=== PATIENT | female | born 1970 | race Caucasian/White ===

== ENCOUNTER → 2016-04-14 | Day surgery (SDC) | payer OTHER ==
[~2016-04-14] MED LIST: BUPIVACAINE/EPINEPHRINE 0.5% PF 30 ML VIAL ONE; CLINDAMYCIN PHOS 900 MG/6 ML VIAL ONE; HEPARIN SODIUM - IV 10,000 UNITS/10 ML VIAL ONE; ISOSULFAN BLUE 50 MG/5 ML VIAL SQ ONE; KETOROLAC TROMETHAMINE 30 MG/ML (IVP) VIAL ONE; LACTATED RINGER'S 1000 ML INJ 1,000 ML ONE; MEPERIDINE HCL 50 MG/ML VIAL ONE; MIDAZOLAM HCL 2 MG/2 ML VIAL ONE; ONDANSETRON HCL 4 MG/2 ML VIAL IV PUSH ONE; PROPOFOL 200 MG/20 ML AMP IV ONE; SODIUM CHLORIDE 0.9% 20 ML VIAL ONE; SODIUM CHLORIDE 0.9% INJ 10 ML ONE; SODIUM CHLORIDE 0.9% SOLN 100 ML (PAB) BAG IV ONE
--- NOTE | 2016-04-14 11:13 | TN ---
cc: ROSAURA DE LEON DATE OF SURGERY: 04/14/2016 PREOPERATIVE DIAGNOSIS Clinical stage II right breast cancer. POSTOPERATIVE DIAGNOSIS Clinical stage II right breast cancer. PROCEDURE PERFORMED 1. Right axillary sentinel lymph node biopsy. 2. Left subclavian PowerPort placement. SURGEON Rosaura Boone ANESTHESIA General via LMA device. INDICATION The patient is a 46-year-old female with a large palpable mass which is greater than 2 cm in size in the upper outer aspect of the right breast. MRI imaging demonstrated borderline adenopathy in the right axilla and ultrasound-guided core biopsy of the right axillary lymph nodes was nondiagnostic. The patient has a tumor which is HER-2/celina overexpressing and she will require neoadjuvant chemotherapy. Axillary staging has also been requested and she presents for the procedure. FINDINGS At the time of surgery normal left subclavian anatomy was identified. Two sentinel lymph nodes were removed. Cascade lymph node #1 had a count of 100 and was not blue, and sentinel lymph node #2 had a count of 85 and was not blue. Touch prep analysis was not performed. PROCEDURE After informed consent was obtained and site verification was performed, the patient was brought to the radiology suite where she underwent peritumoral radionuclide injection. She was then brought to the major operating room where she underwent general anesthesia via an LMA device. She was given a single dose of IV clindamycin due to penicillin allergy. Because of subpectoral implants, she was not placed in Trendelenburg. Two cc of half-strength Lymphazurin were injected in the subareolar right breast and a five-minute massage was performed. Both breasts were then prepped and draped in sterile fashion to include the right arm. The left subclavian area was anesthetized with 0.5% Marcaine plain and the left subclavian vein was identified via percutaneous cannulation. A J-wire easily advanced through the needle via the Seldinger technique an its position was confirmed with fluoroscopy in the central circulation. The needle was then removed and both sharp and electrocautery dissection were performed circumferentially around the wire to create a subcutaneous pocket for the reservoir. The catheter was measured out at 30 cm and cut off. A peel-away sheath and introducer were then advanced over the wire without difficulty and the wire and introducer were removed. The catheter advanced easily through the peel-away sheath which was also removed. Fluoroscopy demonstrated good position of the catheter tip at the atriocaval junction at 19 cm and it was cut off at that point and secured to the reservoir which was noted to flush and aspirate easily. The reservoir was placed in the subcutaneous pocket and secured to the chest wall with a single 2-0 Prolene suture. Good hemostasis was noted and the wound was closed using interrupted 3-0 Vicryl subcutaneous sutures and 4-0 Monocryl subcuticular suture. Steri-Strips and a sterile dressing were applied. Attention was then turned to the right axilla where an incision was anesthetized at the inferior aspect of the right axillary hairline using 0.5% Marcaine plain. Sharp and electrocautery dissection was used to divide the clavipectoral fascia and enter the level I axilla. Multiple less than 1 cm benign-appearing lymph nodes were identified and two central level I nodes were circumferentially dissected free from surrounding structures using the Harmonic scalpel. Cascade node #1 had a count of 100 and it was not blue, and sentinel node #2 had a count of 85 and it was not blue. Some surrounding lymph nodes were also removed using Harmonic scalpel dissection but they had no count and were sent as a permanent axillary specimen. The axillary vein, thoracodorsal, long thoracic, and intercostal brachial vessels were all identified and remained intact throughout the dissection. Good hemostasis was noted and the wound was closed using interrupted 3-0 Vicryl subcutaneous sutures and a 4-0 Monocryl subcuticular suture. Steri-Strips and a sterile dressing were applied. MD ZACKARY Chambers/RANJAN /10:54 AM /11:06 AM
--- NOTE | 2016-08-22 15:33 | MH ---
cc: DEEPTI DICKENS DATE OF ADMISSION: 04/14/2016 PRINCIPAL DIAGNOSIS Right breast cancer ATTENDING PHYSICIAN Lea Dickens MD. HISTORY OF PRESENT ILLNESS The patient is a 46-year-old female initially seen in March for a [id number] positive right breast cancer. The ultrasound measurement on the tumor was 2.1 cm, although on clinical exam, it was 1.5 cm. Adenopathy was also noted and an image guided lymph node biopsy was discordant. Dr. Coombs requested a sentinel lymph node biopsy which was performed and was negative for metastatic disease on April 14. She subsequently completed neoadjuvant chemotherapy which included Taxol and Herceptin. She is also status post previous subpectoral saline implant placement and she now presents requesting bilateral mastectomy with immediate reconstruction. She has no other medical problems. PAST SURGERIES 1. Included port placement 2. Right axillary sentinel lymph node biopsy. 3. Tonsillectomy. MEDICATIONS: She takes no medications. ALLERGIES She is allergic to penicillin. TESTING: Hereditary breast cancer testing was performed and is negative for a mutation. REVIEW OF SYSTEMS: 12-point review of systems was otherwise noncontributory. PHYSICAL EXAMINATION IN GENERAL: She is alert and oriented x3 and in no acute distress. VITAL SIGNS: She was 5'10" and weighs 190 pounds with a BMI of 27.3. Blood pressure was 144/93, temperature 98, respirations 18, heart rate 82. HEAD, EYES, EARS, NOSE, AND THROAT: Exam was significant for alopecia. NECK: The neck was supple with no adenopathy or thyromegaly. CHEST: The Chest was clear throughout. CARDIAC: The cardiac examination revealed a normal S1, S2 with no murmurs, rubs or gallops. BREASTS: The examination revealed fibrocystic changes and intact implants with no palpable masses. Initially she had a palpable mass in the 10 o'clock location of the right breast but this has resolved with neoadjuvant therapy. There is a healed periareolar and right axillary scar. ABDOMEN: The abdomen was soft and nontender throughout with no hepatosplenomegaly or masses. The remainder of her exam was unremarkable. IMPRESSION Ms. Hardwick had an excellent clinical response to therapy and now presents for bilateral mastectomy and immediate reconstruction. She will not require further normal evaluation since of pretreatment sentinel lymph node biopsy was negative. If she desires the nipple sparing procedure and think it is reasonable to proceed. MD Silviano Chambers /1:50 PM /3:29 PM
== END | disposition home or self-care (01) ==
LOC: ESDC 06:16
PROVIDERS: ATTEND Surgery
DX: C50.411 Malignant neoplasm of upper-outer quadrant of right female breast (principal)
CPT/HCPCS: 00532; 01610; 36561; 38525; 38792; 77001; 88307; C1788; J1644; J1885; J2175; J2250; J2405; J3010; J7120; Q9968; 88305

== ENCOUNTER → 2016-06-02 | Day surgery (SDC) | payer OTHER ==
--- NOTE | 2016-05-31 12:55 | MH ---
cc: ROSAURA DICKENS DATE OF ADMISSION: 06/02/2016 PRINCIPAL DIAGNOSIS Right breast cancer with nonfunctioning left subclavian port. ATTENDING PHYSICIAN Rosaura Dickens MD HISTORY OF PRESENT ILLNESS The patient is a 46-year-old female status post left subclavian Fqczrs-N-Jnar placement and right axillary sentinel lymph node biopsy who has HER2 positive clinical stage II right breast cancer. She is currently receiving neoadjuvant chemotherapy and will subsequently undergo bilateral mastectomy with immediate reconstruction. Her left subclavian Revuzd-N-Pule stopped functioning late last week and she now presents for removal and replacement. PAST MEDICAL HISTORY She has significant for the newly diagnosed breast cancer. ALLERGIES PENICILLIN CURRENT MEDICATIONS Her chemotherapy regimen which involves Adriamycin, Cytoxan and Herceptin. PHYSICAL EXAMINATION: IN GENERAL: On physical exam she is alert and oriented x3. HEAD, EYES, EARS, NOSE, AND THROAT: Exam was unremarkable. VITAL SIGNS: She is 5'10" and weighs 190 pounds with a BMI of 27.3. Blood pressure was 147/91, temperature 97, heart rate 86, respirations 20. CHEST: The chest exam was unremarkable with a well-healed port scar and the left subclavian area and chest was clear throughout. CARDIAC: Exam was unremarkable. BREASTS: Exam revealed fibrocystic changes and bilateral implants with a 1.5 cm superior lateral quadrant mass in the outer right breast. Her right breast mass was located 10 o'clock 5 cm from the nipple. The remainder of her exam was unremarkable. IMPRESSION Ms. Hardwick will require replacement of her nonfunctioning Azfmui-O-Sbom and she understands the risks and benefits of the procedure. This is currently scheduled for June 02. MD ZACKARY Chambers/yoav /5:10 PM /12:54 PM
[~2016-06-02] MED LIST changes: +BUPIVACAINE/EPINEPHRINE 0.5% PF 10 ML VIAL ONE; -BUPIVACAINE/EPINEPHRINE 0.5% PF 30 ML VIAL ONE; -ISOSULFAN BLUE 50 MG/5 ML VIAL SQ ONE; -MEPERIDINE HCL 50 MG/ML VIAL ONE; -ONDANSETRON HCL 4 MG/2 ML VIAL IV PUSH ONE; +ONDANSETRON HCL 4 MG/2 ML VIAL ONE; +PROPOFOL 100 MG/10 ML INJ IV ONE; -PROPOFOL 200 MG/20 ML AMP IV ONE; +PROPOFOL 500 MG/50 ML BTL IV ONE; -SODIUM CHLORIDE 0.9% INJ 10 ML ONE; -SODIUM CHLORIDE 0.9% SOLN 100 ML (PAB) BAG IV ONE; +SODIUM CHLORIDE 0.9% SOLN 100 ML BAG IV ONE; +oxyCODONE/ACETAMINOPHEN 5 MG/325 MG TAB ONE
--- NOTE | 2016-06-02 10:37 | TN ---
cc: ROSUARA DICKENS M.D. DATE OF SURGERY: 06/02/2016 PREOPERATIVE DIAGNOSIS Right breast cancer with nonfunctioning left subclavian Ohezeb-L-Diwn. POSTOPERATIVE DIAGNOSIS Right breast cancer with nonfunctioning left subclavian Ypnlmy-G-Xnms. PROCEDURE PERFORMED Repositioning of left subclavian Fjkwzh-G-Nkjr. SURGEON Rosaura Dickens ANESTHESIA TIVA. INDICATION The patient is a 46-year-old with clinical stage II right breast cancer which is HER-2 positive. She is receiving neoadjuvant chemotherapy and her Cfsdrm-O-Bnoh was unable to be accessed last Sunday. She now presents for evaluation and possible replacement of her port to facilitate chemotherapy. FINDINGS At the time of the procedure the PowerPort was patent and could be flushed and aspirated easily. It had rotated on itself making access impossible. PROCEDURE After informed consent was obtained and site verification was performed, the patient was brought to the operating room where she was given IV sedation. She was given a single dose of clindamycin due to penicillin allergy and sequential compression hose were placed. The left and right chest and neck were prepped and draped in sterile fashion. The previous left subclavian port incision was anesthetized with 0.5% Marcaine plain and incised sharply. The port was immediately identified and had rotated on itself and the securing stitch had broken. The reservoir was accessed using heparinized saline and was noted to flush and aspirate easily. It was replaced into the subcutaneous pocket and secured to the soft tissue with two 2-0 Prolene sutures, one on each side of the IV portion. Good hemostasis was noted and the wound was closed using interrupted 3-0 Vicryl and a 4-0 Monocryl subcuticular suture. Steri-Strips and a sterile dressing were applied. She also had a small superficial hemangioma adjacent to the port site and she requested removal. This was snipped at its base using a knife and cauterized. The patient tolerated the procedure well and was brought to the recovery room in good condition. All sponge and needle counts were correct at the conclusion of the case. MD ZACKARY Chambers/RANJAN /10:10 AM 10:30 AM
== END | disposition home or self-care (01) ==
LOC: ESDC 07:22
PROVIDERS: ATTEND Surgery
DX: Z45.2 Encounter for adjustment and management of vascular access device (principal); C50.911 Malignant neoplasm of unspecified site of right female breast
CPT/HCPCS: 00400; 00532; 36561; 36590; C1788; J1644; J1885; J2250; J2405; J3010; J7120

== ENCOUNTER → 2016-08-25 | Day surgery (SDC) | payer OTHER ==
[~2016-08-25] MED LIST changes: +ACETAMINOPHEN 1000 MG/100 ML VIAL IV ONE; +ACETAMINOPHEN/HYDROcodone 325 MG/5 MG TAB ONE; +BACITRACIN IM FOR SOLN 50,000 UNIT VIAL ONE; +BUPIVACAINE LIPOSOME PF 1.3% 20 ML VIAL ONE; -BUPIVACAINE/EPINEPHRINE 0.5% PF 10 ML VIAL ONE; +BUPIVACAINE/EPINEPHRINE 0.5% PF 30 ML VIAL ONE; -CLINDAMYCIN PHOS 900 MG/6 ML VIAL ONE; +GENTAMICIN SULFATE 80 MG/2 ML VIAL ONE; -HEPARIN SODIUM - IV 10,000 UNITS/10 ML VIAL ONE; +KETOROLAC TROMETHAMINE 30 MG/ML (IVP) VIAL IV PUSH ONE; -KETOROLAC TROMETHAMINE 30 MG/ML (IVP) VIAL ONE; +MEPERIDINE HCL 25 MG/ML VIAL ONE; +ONDANSETRON HCL 4 MG/2 ML VIAL IV PUSH ONE; -ONDANSETRON HCL 4 MG/2 ML VIAL ONE; +PROMETHAZINE INJ 25 MG/ML VIAL ONE; -PROPOFOL 100 MG/10 ML INJ IV ONE; +PROPOFOL 200 MG/20 ML AMP IV ONE; -PROPOFOL 500 MG/50 ML BTL IV ONE; -SODIUM CHLORIDE 0.9% 20 ML VIAL ONE; +SODIUM CHLORIDE 0.9% INJ 10 ML ONE; -SODIUM CHLORIDE 0.9% SOLN 100 ML BAG IV ONE; +VANCOMYCIN HCL 1000 MG VIAL ONE; -oxyCODONE/ACETAMINOPHEN 5 MG/325 MG TAB ONE
--- NOTE | 2016-08-25 14:38 | TN ---
cc: ROSAURA DICKENS DATE OF SURGERY: 08/25/2016 PREOPERATIVE DIAGNOSIS Right breast cancer, status post neoadjuvant chemotherapy. POSTOPERATIVE DIAGNOSIS Right breast cancer, status post neoadjuvant chemotherapy. PROCEDURE PERFORMED Bilateral nipple-sparing mastectomy, bilateral implant removal and bilateral tissue transfer station attendant placement with removal of accessory left nipple. SURGEONS Rosaura Dickens and Juventino Taylor ANESTHESIA General via LMA device. INDICATION The patient is a 46-year-old female who presented with right breast cancer which was HER-2/celina positive. She completed neoadjuvant chemotherapy and now presents for definitive surgical therapy. She has opted for a bilateral nipple-sparing procedure and she already has implants in place. FINDINGS At the time of surgery no residual carcinoma was identified in the upper outer right breast. Intact implants were encountered bilaterally in the subpectoral position. PROCEDURE After informed consent was obtained and site verification was performed, the patient was brought to the major operating room where she underwent general anesthesia via an LMA device. Both breasts were prepped and draped in sterile fashion and she was given a single dose of IV Ancef and sequential compression hose were placed. 200 cc of tumescent solution were infiltrated in the plane between the subcutaneous fat and anterior breast fascia bilaterally. An inframammary crease incision was created on the right side and sharp dissection was performed to develop the plane between the subcutaneous fat and anterior breast fascia medially and laterally to the level of the nipple. The posterior plane was then developed using electrocautery dissection and it should be noted that the anterior implant capsule and pectoralis muscle were densely adherent. The muscle and capsule were dissected free from the overlying breast tissue medially and laterally up to the level of the clavicle. Sharp dissection was then performed in the area of the nipple and a piece of the undersurface of the nipple was removed and sent for frozen section after marking the new nipple margin. Further sharp dissection was performed in the superior portion of the breast up to the level of the clavicle in the anterior plane between the breast fascia and the subcutaneous fat. The breast was then amputated in the axilla and the specimen was oriented with one short suture superiorly, two sutures anteriorly, and one long suture laterally. Hemostasis was easily obtained with electrocautery. The reconstruction was then performed by Dr. Taylor and will be recorded on a separate dictation. MD KATY Chambers /2:29 PM /2:38 PM
--- NOTE | 2016-08-25 15:38 | TN ---
cc: JUVENTINO TAYLOR M.D. DATE OF SURGERY: 08/25/2016 PREOPERATIVE DIAGNOSIS Right breast cancer. POSTOPERATIVE DIAGNOSIS Right breast cancer. PROCEDURE 1. Left simple mastectomy. 2. Removal of breast implant material. 3. Bilateral capsulorrhaphies. 4. Tissue shake backboard notcher reconstruction including the introduction of ACell dermal matrix. SURGEON Juventino Taylor ANESTHESIA LMA general. Also, utilized tumescent fluid approximately 150 cc, 1000 cc normal saline and 50 cc of 1% lidocaine and epinephrine was mixed. DRAINS Total of four, two 7 mm DOMONIQUE, and two 10 mm DOMONIQUE. DETAILS OF PROCEDURE She was properly consented, marked and properly anesthetized. The skin was sterilized with Betadine solution and sterile draping applied. Tumescent fluid was done after the area was properly prepped utilizing Betadine solution. The tumescent was applied after the area was properly draped. While I was performing the left mastectomy, Dr. Rosaura Boone performed the right mastectomy. Please refer to her dictation for this particular procedure. By landmarks the incision was 7-8 cm inframammary fold, the parasternal area anterior axillary line, second to third intercostal space superiorly and 7-8 intercostal space inferiorly. The previous implant was placed in a retropectoral plane, being a saline. The breast tissue was properly dissected in a subcuticular fashion. The retroareolar tissue was sampled and sent to frozen section which she was negative by Dr. Nat Nicole bilaterally and therefore both nipples were preserved. At this point once the breast tissue was removed it was tagged with a short superior, long lateral sutures and sent to pathology for analysis. With this I proceeded and reset the lateral capsulorrhaphies after the mastectomy utilizing #2 Monocryl suture. We utilized the inferior capsule in the left breast to hold and preserve this in the retropectoral plane and there was absolutely no pathology there. I proceeded and preserved this and utilized this as a scaffold to suture in the inferolateral and medial aspect a 6 x 16 AlloDerm thick. The tissue shake backboard notcher was a [place] [employer] filled to 400 cc out of 500. The serial number on the right device is [id number], and to the left was [id number]. With this the tissue shake backboard notcher was placed in the retroperitoneal plane. Two DOMONIQUE drains were brought out through a separate stab wound. The tissue shake backboard notcher was expanded to 400 cc. The AlloDerm was fully closed into the inframammary fold utilizing 2-0 Monocryl suture. The wounds were closed at the Bucky's fascia, dermis and subcu utilizing 2-0 Monocryl suture and a Prineo Dermabond was applied to the skin thereafter. The drains were dressed utilizing BioPatch and Tegaderm. Once this left side was properly completed my attention was directed to the right breast where Dr. Bonoe had performed the mastectomy. Again assured meticulous hemostasis. Capsulorrhaphies were done utilizing 2-0 Monocryl suture. I performed this in the superior pectoral and a retropectoral plane. As in this case due to the cancer site, she had removed the full capsule. I anchored the AlloDerm in the inferior aspect of pectoralis major muscle down into the inframammary fold. The tissue shake backboard notcher was thereafter introduced and expanded to 400 cc as well. Full closure of the capsule into the inferior border of the inframammary fold was done, anchoring the AlloDerm down. Again, two DOMONIQUE drains were also secured through a separate stab wound and for pain control I applied a total of 40 cc of Exparel, 20 cc per breast in the pectoralis fascia as well as incisional site. Prineo Dermabond was applied thereafter. Finally I proceeded and performed the extra nipple on the left breast through an incision of about 1.5 cm and this was closed in an intermediate fashion utilizing 3-0 Monocryl suture and 5-0 chromic suture and dressed with the Dermabond Prineo as well. Fluffs as well as tape was applied. Good viability of the tissue was noted at the end of the case. The patient was awakened and extubated in the operating room and transferred back to the post-anesthesia care unit in stable condition. No complications appreciated. The patient tolerated the procedure fairly well. MD ELIZABETH Bustamante/RANJAN /3:12 PM /3:21 PM LADY
== END | disposition home or self-care (01) ==
LOC: ESDC 10:24
PROVIDERS: ATTEND Surgery
DX: C50.911 Malignant neoplasm of unspecified site of right female breast (principal); Z92.3 Personal history of irradiation; Q83.3 Accessory nipple
CPT/HCPCS: 00400; 00402; 15777; 19120; 19304; 19357; 88307; 88331; C1789; C9290; J0131; J1580; J1885; J2175; J2250; J2405; J2550; J3010; J3370; J7120; Q4116; 88305

== ENCOUNTER 2017-11-29 05:55 | Observation (INO) ==
[2017-11-29] MEDS ORDERED: Chlorhexidine Gluconate 2% 1 Pack (2 Cloths) TOPICAL ONE (06:24)
[2017-11-29] MEDS ORDERED: Metoprolol Tartrate 25 MG Tablet PO ONE (06:24)
[2017-11-29] MEDS ORDERED: Heparin - SQ 10,000 UNITS/ML Vial SQ SCH (06:30)
[2017-11-29] MEDS ORDERED: Dexmedetomidine Inj 200 MCG/2 ML Vial ONE (06:52)
[2017-11-29] MEDS ORDERED: Levofloxacin 500 mg Premix Inj 500 MG/100 ML PIGGYBACK IV.SIG SCH (07:00)
[2017-11-29] MEDS ORDERED: Sodium Chlor 0.9% Inj 500 ML IV.SIG SCH (07:00)
[2017-11-29] MEDS ORDERED: Glycopyrrolate Inj 1 MG/5 ML Syringe IV.PUSH ONE (07:34)
[2017-11-29] MEDS ORDERED: Ketorolac Inj 30 MG/ML (IVP) Vial IV.PUSH ONE (07:34)
[2017-11-29] MEDS ORDERED: Lidocaine PF 1% Inj 5 ML Syringe INFILTRATN ONE (07:34)
[2017-11-29] MEDS ORDERED: Neostigmine Inj 5 MG/5 ML Syringe IV.PUSH ONE (07:34)
[2017-11-29] MEDS ORDERED: Sugammadex Inj 200 MG/2 ML Vial IV.PUSH ONE (09:28)
[2017-11-29] MEDS ORDERED: Lidocaine 1%/Epinephrine 1:100,000 Inj 20 ML Vial INFILTRATN ONE ×2 (09:58→10:45)
[2017-11-29] MEDS ORDERED: Methylene Blue Inj 100 MG/10 ML Vial OTHER ONE (10:06)
[2017-11-29] MEDS ORDERED: HYDROmorphone PF Inj 1 MG/ML Ampul IV.PUSH PRN ×2 (11:05→11:29)
[2017-11-29] MEDS ORDERED: LORazepam 0.5 MG Tablet PO PRN (11:05)
[2017-11-29] MEDS ORDERED: fentaNYL Citrate Inj 100 MCG/2 ML Ampul ONE (11:26)
[2017-11-29] MEDS ORDERED: Morphine Inj 4 MG/ML Vial ONE (11:26)
[2017-11-29] MEDS: KCL 20 mEq/D5W/NaCl 0.45% Inj 1,000 ML IV.CONT SCH ×2 (11:45→20:43)
[2017-11-29] MEDS ORDERED: Ketorolac Inj 30 MG/ML (IVP) Vial IV.PUSH SCH (12:00)
[2017-11-29] MEDS: Ketorolac Inj 30 MG/ML (IVP) Vial IV.PUSH SCH ×2 (17:12→23:11)
[2017-11-30 00:09] VITALS: RESP 18
[2017-11-30] MEDS: KCL 20 mEq/D5W/NaCl 0.45% Inj 1,000 ML IV.CONT SCH (04:22)
[2017-11-30] MEDS: Ketorolac Inj 30 MG/ML (IVP) Vial IV.PUSH SCH (06:30)
[2017-11-30 07:03] LABS: Baso # (Auto) 0.1 th/mm3 (0.0-0.2); Baso % (Auto) 0.5 % (0.0-2.0); Hematocrit 35.2 % (35.0-46.0); Hemoglobin 11.7 gm/dL (11.6-15.3); Lymph # (Auto) 1.6 th/mm3 (1.0-4.8); Lymph % (Auto) 14.5 % (9.0-44.0); Mean Corpuscular HGB Conc 33.3 % (32.0-36.0); Mean Corpuscular Hemoglobin 29.7 pg (27.0-34.0); Mean Corpuscular Volume 89.4 fL (80.0-100.0); Mean Platelet Volume 7.8 fL (7.0-11.0); Mono # (Auto) 0.7 th/mm3 (0.0-0.9); Mono % (Auto) 6.1 % (0.0-8.0); Neut # (Auto) 8.7 th/mm3 (1.8-7.7); Neut % (Auto) 78.9 % (16.0-70.0); Platelet Count 230 th/mm3 (150-450); Red Blood Count 3.93 mil/mm3 (4.00-5.30); Red Cell Distribution Width 12.8 % (11.6-17.2); White Blood Count 11.1 th/mm3 (4.0-11.0)
[2017-11-30 07:16] LABS: Carbon Dioxide 23.9 meq/L (21.0-32.0); Potassium 3.6 meq/L (3.5-5.1)
[2017-11-30 08:55] VITALS: BP 135/70; PULSE 93; TEMP 98.9; O2SAT 97
--- NOTE | 2017-11-30 13:28 | MD ---
cc: Tayler Back MD, Abdul J MD [place],Hematology/Oncology Geronimo Latif MD DATE OF DISCHARGE: 11/30/2017 PROCEDURE: 11/29/2017: Robotic-assisted laparoscopic hysterectomy, bilateral salpingo-oophorectomy, appendectomy, extensive lysis of adhesions. HOSPITAL COURSE: She did well in her early postop period. Hemodynamically stable, tolerating oral intake. Sanchez catheter removed pending voiding. Ins and Outs: 3200/2850. Labs show an H and H of 11.7 and 35.2. Electrolytes essentially normal; BUN and creatinine 8 and 0.81. PHYSICAL EXAMINATION: VITAL SIGNS: Afebrile, pulse 83-98, respirations 18, blood pressure 131-143/73-74, O2 saturations greater than 98%. GENERAL: Alert and oriented x3. LUNGS: Clear. Mild basilar rales. CARDIOVASCULAR: Regular rate and rhythm; abdominal incision is clean and dry. ASSESSMENT: Postoperative day 1. Pulmonary pathology findings at the time of surgery and steps were reviewed, activities and restrictions were discussed. Questions were asked and answered. She expressed good understanding. PLAN: I anticipate she will meet criteria for discharge to home today. She is to contact our office to schedule a followup in 2 weeks. She is to resume prior medications and a prescription is provided for Percocet. MD YOVANA Casey/becky , 07:34 AM , 07:40 AM
--- NOTE | 2017-12-05 13:36 | MP ---
cc: Tayler Back MD, Abdul J MD Choi,Geronimo LEE DATE OF OPERATION: 11/29/2017 PREOPERATIVE DIAGNOSES: 1. Premenopausal breast cancer. 2. Desires therapeutic and prophylactic gynecologic surgery. POSTOPERATIVE DIAGNOSES: 1. Premenopausal breast cancer. 2. Desires therapeutic and prophylactic gynecologic surgery. 3. Extensive intraperitoneal adhesions. PROCEDURE: Robotic-assisted laparoscopic hysterectomy, bilateral salpingo-oophorectomy, extensive lysis of adhesions, appendectomy. SURGEON: Tayler Back MD BLOWER ROOM ATTENDANT: Edilberto assistant brand manager. ANESTHESIA: General endotracheal anesthesia. ESTIMATED BLOOD LOSS: 100 mL. IV FLUIDS: 1300 mL. URINE OUTPUT: 200 mL. HISTORY AND INDICATIONS: A 47-year-old female recently diagnosed with breast cancer in the premenopausal. Estrogen receptor positive. She has been counseled regarding the potential therapeutic as well as prophylactic benefit of gynecologic surgery. She has been seen again in the preop holding area where the findings and plan of care are discussed. She is in favor of complete hysterectomy to remove the uterus and cervix in addition to the tubes and ovaries and understands and wishes to move forward with surgery. FINDINGS: Upon entry into the peritoneal cavity, there are dense adhesions between the ileocecal region of the bowel and the anterior and right lateral abdominal wall and there are some adhesions between the colon and the left sidewall overlying the adnexal structures. There were no overt intraperitoneal implants. There was no overt pelvic or periaortic adenopathy. The tubes and ovaries grossly appeared normal. The uterus grossly appeared normal with normal-appearing cavity on preliminary assessment. The appendix was elongated and was twisted back on itself in a circular fashion with dense adhesions to all surrounding structures and with the ileocecal region adherent to the anterior and lateral wall suggestive of probable prior subclinical appendicitis with resultant adhesions. STATEMENT OF COMPLEXITY/MODIFIER: The complexity and duration of this case were extended significantly due to the extensive lysis of adhesions to gain safe access to the peritoneal cavity, establish normal anatomy, to isolate the appendix, and to accomplish surgical objectives as well as immobilizing the left colon. An estimated additional 60 minutes of operative time were spent and modifier should be applied accordingly. DESCRIPTION OF PROCEDURE: She was taken to the operating room and placed in dorsal lithotomy position, after general endotracheal anesthesia was administered. A timeout was undertaken. She was identified by site recognition and hospital ID bracelet and the proposed procedure was reviewed and confirmed. She was carefully positioned in padded Oscar stirrups. Her arms were padded and secured to the sides. She was further secured to the operating table with egg crate padding and tape across just over the shoulder fashion. All sites noted to be properly aligned with no malalignment or pressure points. She was prepped in sterile fashion, draped below the waist, placed in lithotomy position. The cervix was grasped. Uterine cavity sounded and a V-Care manipulator was inserted and secured usual fashion. Sanchez catheter was placed in the bladder. She was returned to the low lithotomy position. Change of sterile gloves was undertaken. We confirmed that an orogastric tube was in the stomach on suction and we completed draping in anticipation of laparoscopy. With manual elevation of the abdominal wall and direct laparoscopic visualization, a 5 mm cannula was introduced into the left upper quadrant and then atraumatic entry was confirmed. Carbon dioxide gas was insufflated and under laparoscopic visualization, 8 mm cannulas were placed in the right upper quadrant, left lateral quadrant and a 12 mm cannula placed in the midline above the umbilicus. Adhesiolysis was carried out with sharp dissection to mobilize the ileocecal bowel from the anterior and right lateral abdominal wall. Sharp dissection was carried out until the bowel was mobilized. Also adhesions were taken down as the bowel was partially draped below the pelvic brim to allow mobilization above the pelvic brim. Further dissection around the appendix showed extensive periappendiceal adhesions and some adjacent omentum in the right upper quadrant was taken down from the anterior abdominal wall. She was placed in Trendelenburg position. Peritoneal washings were obtained for cytology. The anatomy was surveyed with findings as described above. She was placed in steep Trendelenburg. The small bowel was folded back on its mesenteric root and three Ray-Sydnee sponges were placed around the root of the small bowel mesentery. The robotic and peritoneal washings were obtained for cytology. The robotic system was brought into the operative field and attached in the usual fashion. Monopolar scissors, fenestrated bipolar forceps, and ProGrasp manipulators were placed in arms #1, 2, and 3 respectively and I took my place at the surgeon's console. Right round ligament was isolated, cauterized, and transected. The anterior and posterior leaves of the broad ligament were opened. The right ureter was identified and the right infundibulopelvic ligament was isolated. The intervening peritoneum was opened as the infundibulopelvic ligament was isolated to the level of the pelvic brim where it was cauterized and transected. Posterior peritoneum opened along the right side of the uterus and cervix and the right vesicouterine peritoneum dissected off the lower uterine segment and cervix. The right uterine vessels were skeletonized, cauterized, and transected as were the cardinal, paracervical and uterosacral ligaments, thereby freeing the attachments along the right side of the uterus and cervix. Attention was directed toward the left side where adhesions were taken down with sharp dissection to mobilize the colon from its attachment to the left pelvic sidewall to where it was adherent to the gonadal structures. The left round ligament was isolated, cauterized, and transected. The anterior and posterior leaves of the broad ligament were opened. The left ureter was identified. The left infundibulopelvic ligament was isolated as the intervening peritoneum was opened. Further mobilization of the colon and pericolonic fat off of the gonadal vessels allowed the gonadal vessels to be isolated to the level of the pelvic brim where they were cauterized and transected. Posterior peritoneum opened along the left side of the uterus and cervix and the left vesicouterine peritoneum was dissected off the lower uterine segment and cervix and the left uterine vessels were skeletonized. The left uterine vessels were cauterized and transected as were the cardinal, paracervical, and uterosacral ligaments, thereby freeing the attachments along the left side of the uterus and cervix. A circumferential colpotomy was performed the cervix from the upper vagina and the specimen was withdrawn transvaginally, which included uterus, cervix, tubes and ovaries and the pneumo-occluder balloon was placed in the vagina to maintain pneumoperitoneum. Instruments #1 and 3 were exchanged for needle drivers as a 0 Vicryl suture was introduced. The vaginal cuff was closed starting at the left corner full-thickness closure, incorporating the posterior peritoneum and the edge of the uterosacral ligament tied via instrument tie and then this closure was held on countertraction with running continuous full-thickness closure across the vaginal cuff to the contralateral corner where it was similarly secured and tied and the needle was cut and removed. The pelvis was thoroughly irrigated. The integrity of the bladder was checked by filling the bladder. There were no defects in the bladder. No loss of integrity. There was a good margin between the vaginal cuff suture line and the bladder. Good peristalsis of ureters bilaterally and the bladder was drained. Scissors and bipolar forceps were reintroduced and attention was directed to the right lower quadrant and the appendix where additional lysis of adhesions was carried out to mobilize the appendix and free it from its circular fixation and to its attachment to adjacent structures. The mesoappendix was isolated to the level of the base of the appendix at the cecum. The mesoappendix was cauterized and transected. With elevation at the tip of the appendix using the mesoappendix to the lift, short segments of 0 Vicryl suture were introduced as instruments 1 and 3 were exchanged for needle drivers. 0 Vicryl suture was tied securely at the base of the appendix and a second 0 Vicryl suture was tied a couple of millimeters distal to this and then a third 0 Vicryl suture was used and tied around the appendix approximately 1 cm distal to that. Sharp dissection and focal cautery were used to transect the appendix and superficially cauterize the tip and the appendix was placed on a Ray-Sydnee sponge and the right pericolic gutter for later retrieval and these instruments were removed. The pelvis and the periappendiceal region were irrigated to assist in continued hemostasis. Hemostatic Francia powder was placed across the vaginal cuff, lateral pelvic sidewalls, and periappendiceal dissection area. All sites were hemostatic. The robotic instruments were removed. The robotic system was disengaged from the operative field. I reentered the bedside under sterile condition. A 12 mm EndoCatch bag was introduced and the appendix was captured and brought out to the abdominal wall through the 12 mm cannula contained within the specimen bag. Next, each of the 3 Ray-Sydnee sponges that had been placed in the peritoneal cavity were isolated and removed. Each were inspected and noted to be removed in their entirety. There were no remaining foreign objects in the peritoneal cavity and preliminary counts were correct. Attention was directed toward closing. Sutures of 0 Vicryl interrupted were used with a fascial closure device and they were tied securely, which were into the fascia completely airtight and hemostatic. The remaining cannulas were withdrawn. Carbon dioxide gas was removed from the peritoneal cavity. A 3-0 Vicryl subcutaneous, 3-0 Vicryl subcuticular and Steri-Strips were used to close these incisions. She was returned to dorsal lithotomy position. Pelvic exam confirmed the vaginal cuff was well supported and hemostatic. There were no remaining foreign objects in the vagina. Final counts were correct. She was returned to dorsal supine position and was pending reversal of anesthesia when I left the operating room to precede her to the postanesthesia care unit. MD YOVANA Casey/sv , 08:46 AM , 09:04 AM
== END 2017-11-30 10:26 | disposition home or self-care (01) ==
LOC: HSDC 05:55 → HSDI 05:55 → HCIN 12:50
PROVIDERS: ATTEND Obstetrics & Gynecology Gynecologic Oncology